=== PATIENT | male | born 1975 | race Caucasian/White ===

== ENCOUNTER 2018-04-29 13:28 | Emergency (ER) | payer OTHER ==
[~2018-04-29] VITALS: Ht 182.9 cm; Wt 127.0 kg
[2018-04-29] MEDS ORDERED: TOPROL XL100 MG PO (13:45)
[2018-04-29] MEDS ORDERED: NAPROSYN500 MG PO (14:49)
[2018-04-29 14:56] VITALS: BP 166/99
== END 2018-04-29 14:58 | disposition home or self-care (01) ==
LOC: M.ERS 13:28
DX: M94.0 Chondrocostal junction syndrome [Tietze] (principal); I10 Essential (primary) hypertension